=== PATIENT | female | born 1970 | race Two or more races ===

== ENCOUNTER 2019-12-02 09:47 | Outpatient (RCR) | payer BC ==
[~2019-12-02 09:47] MED LIST: AMLODIPINE-BEN1 EAC4; ASPIRIN81 M1; MOTRIN600 MG PO; NORCO 5-325 TA1 EACH PO; ONE DAILY MULT1 EAC1 PO; PRAVASTATIN SOD40 MG
== END 2019-12-04 ==
LOC: PT 09:47
PROVIDERS: ATTEND Specialist
DX: S32.592A Other specified fracture of left pubis, initial encounter for closed fracture (principal); R10.2 Pelvic and perineal pain; M62.81 Muscle weakness (generalized); R26.2 Difficulty in walking, not elsewhere classified
CPT/HCPCS: 97139